=== PATIENT | male | born 1975 | race Caucasian/White ===

== ENCOUNTER 2020-03-04 20:52 | Inpatient (IN) | payer OTHER ==
[~2020-03-04] VITALS: Ht 190.5 cm; Wt 104.3 kg
[2020-03-04] MEDS ORDERED: AMPH20TA3 PO (21:08)
[2020-03-04] MEDS ORDERED: ACETAMINOPHEN ES 500 MG TABLET PO ONE (21:45)
[2020-03-04] MEDS ORDERED: ACETAMINOPHEN ES 500 MG TABLET ONE (22:00)
--- NOTE | 2020-03-04 23:27 | NUR ---
PATIENT BACK FROM CT. PATENT NOT IN ANY DISTRESS. NO SOB.
--- NOTE | 2020-03-05 00:28 | NUR ---
DR BAILON CALLED BACK SPOKE WITH DR TAM ACCEPTED ADMISSION TELE.
[2020-03-05] MEDS ORDERED: Z GUARD REMEDY PASTE 57 GM TUBE TOP PRN (01:00)
[2020-03-05] MEDS ORDERED: MAGNESIUM HYDROXIDE 30 ML LIQUID UDC PO PRN (01:00)
[2020-03-05] MEDS ORDERED: ONDANSETRON 4 MG/2 ML VIAL IV PRN (01:00)
[2020-03-05] MEDS ORDERED: ACETAMINOPHEN 325 MG TABLET PO PRN (01:00)
[2020-03-05] MEDS ORDERED: LORAZEPAM 1 MG TABLET PO STA (01:59)
--- NOTE | 2020-03-05 02:00 | NUR ---
Pt. admitted to TELE , under care of Dr. BAILON Belongs List completed
[2020-03-05] MEDS: HYDROCODONE/APAP 5-325MG TABLET PO PRN ×4 (02:35→13:49)
[2020-03-05 03:00] VITALS: BP 121/73
--- NOTE | 2020-03-05 03:35 | NUR ---
Pt arrived in the unit at 0206. AAO x4. No acute distress noted. C/o moderate pain around the face and neck area, PRN pain med given as ordered. Pertinent assessment done. Wound picture taken. Oriented pt in the room and equipment. Pt's belonging's list completed. Safety measures maintained. Call light and personal items within reach. Will continue to monitor.
[2020-03-05 04:00] VITALS: BP 141/87
--- NOTE | 2020-03-05 07:00 | NUR ---
Pt c/o more pain this morning. Tylenol given, but pain unrelieved after an hour. [place] PRN given as ordered. MRI checklist done. Continue to monitor and assess. Will endorse accordingly to oncoming shift.
[2020-03-05 08:43] VITALS: BP 110/54
[2020-03-05] MEDS ORDERED: Medication Not On Formulary EA (Amphet Asp/Amphet/D-Amphet (Adderall 20 Mg Tablet) 20 MG PO SCH (09:00)
[2020-03-05] MEDS ORDERED: LORAZEPAM 1 MG TABLET PO PRN (11:00)
[2020-03-05 11:23] LABS: BASOPHILS # (AUTO) 0.1 K/uL (0.0-8.0); BASOPHILS % (AUTO) 0.6 % (0.0-2.0); EOSINOPHILS # (AUTO) 0.1 K/uL (0.0-0.7); EOSINOPHILS % (AUTO) 0.6 % (0.0-7.0); HEMATOCRIT 43.5 % (36.7-47.1); HEMOGLOBIN 14.7 g/dL (12.5-16.3); LYMPHOCYTES # (AUTO) 1.6 K/uL (20.0-40.0); LYMPHOCYTES % (AUTO) 19.2 % (20.5-51.5); MEAN CORPUSCULAR HGB CONC 34 g/dL (32.5-36.3); MEAN CORPUSCULAR VOLUME 92.1 fL (73.0-96.2); MONOCYTES # (AUTO) 0.7 K/uL (2.0-10.0); NEUTROPHILS % (AUTO) 71.6 % (38.5-71.5); PLATELET COUNT (AUTO) 211 K/uL (152-348); RED BLOOD CELL COUNT(AUTO) 4.72 MIL/uL (4.06-5.63); WHITE BLOOD COUNT (AUTO) 8.4 K/uL (3.6-10.2)
[2020-03-05 11:27] LABS: CREATININE 1.4 mg/dL (0.6-1.3); POTASSIUM 3.9 mmol/L (3.5-5.1)
[2020-03-05 11:33] LABS: BILIRUBIN,TOTAL 0.5 mg/dL (0.2-1.0); TOTAL PROTEIN, SERUM 6.7 g/dL (6.4-8.2)
[2020-03-05] MEDS ORDERED: IV NS 1000 ML 1,000 ML IV PRN (14:00)
--- NOTE | 2020-03-05 15:10 | NUR ---
STATES HE DOES NOT WANT TO STAY ANY LONGER. HE HAS NOT GOTTEN HIS MRI AND IT IS TAKING TOO LONG HE WILL F/U WITH HIS PRIMARY MD
--- NOTE | 2020-03-05 15:15 | NUR ---
SIGNED AMA FORM
== END 2020-03-05 15:10 | disposition left against medical advice (07) | DRG 85 ==
LOC: ER 20:54 → TELE3 03-05 01:46
PROVIDERS: ADMIT Nurse Practitioner Acute Care; ATTEND Nurse Practitioner Acute Care
DX: S06.300A Unspecified focal traumatic brain injury without loss of consciousness, initial encounter (principal); N17.0 Acute kidney failure with tubular necrosis; S02.2XXA Fracture of nasal bones, initial encounter for closed fracture; V19.3XXA Pedal cyclist (driver) (passenger) injured in unspecified nontraffic accident, initial encounter; Y93.55 Activity, bike riding; E66.9 Obesity, unspecified; Z68.28 Body mass index [BMI] 28.0-28.9, adult; S00.81XA Abrasion of other part of head, initial encounter; S60.812A Abrasion of left wrist, initial encounter; R40.2412 Glasgow coma scale score 13-15, at arrival to emergency department; Y92.89 Other specified places as the place of occurrence of the external cause
CPT/HCPCS: 36415; 70450; 70486; 71045; 72125; 73030; 73080; 73110; 73130; 85025; 85610; A4663; A9150; G0378